=== PATIENT | female | born 1975 | race Caucasian/White ===

== ENCOUNTER → 2018-01-20 | Outpatient (CLI) | payer BC | LOC: FIMAGING 08:18 | PROVIDERS: ATTEND Advanced Practice Midwife | DX: O09.522 Supervision of elderly multigravida, second trimester (principal); Z3A.19 19 weeks gestation of pregnancy ==

== ENCOUNTER 2018-05-19 16:39 | Inpatient (IN) | payer MEDICAID ==
[2018-05-19] MEDS ORDERED: LR 1,000 ML IV PRN (17:27)
[2018-05-19] MEDS ORDERED: OXYTOCIN/RINGERS LACTATE 1,000 ML IV PRN (17:27)
[2018-05-19] MEDS ORDERED: MISOPROSTOL 200 MCG TAB PR PRN (17:27)
[2018-05-19] MEDS ORDERED: LIDOCAINE 1% 300 MG/30 ML SDV SC PRN (17:27)
[2018-05-19] MEDS ORDERED: EPSOM SALT 454 GM TP PRN (17:27)
[2018-05-19] MEDS ORDERED: IBUPROFEN 600 MG TAB PO PRN (17:27)
[2018-05-19] MEDS ORDERED: OLIVE OIL 118 ML BTL MISC PRN (17:27)
[2018-05-19] MEDS ORDERED: BETAMETHASONE IM SYRINGE IM ONE (17:50)
--- NOTE | 2018-05-19 18:21 | PDGENHP ---
History and Physical History and Physical: Care: [facility] HPI: Patient is a 42 yo G 2 P 0 @ 36 weeks that presents to L&D for monitoring and betamethasone prior to starting induction of labor for IUGR per [facility] recommendation EDC: 06/16/18 which is based on LMP: 09/19/2018 which is known and consistent with Ultrasound at 10 weeks. 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 Review of Systems: Constitutional: Denies any fever, chills, or fatigue HEENT: denies any visual changes, difficulty swallowing, hearing loss Cardiovascular: Denies any chest pain, palpitations, leg swelling Respiratory: denies any cough, wheezing, or shortness of breathe GI: Denies any nausea, vomiting, diarrhea, constipation : denies any dysuria, urgency, frequency, vaginal bleeding Musculoskeletal: denies any muscle or bone pain Skin: denies any rashes Neuro: denies any headache, seizures, lightheadedness, dizziness, or loss of consciousness Psychiatric: denies any depression, anxiety, or SI/HI thoughts HISTORY: Previous brand leader history: Hx of LEEP Past medical history: Past surgical history: Tonsillectomy, tx for accident in hospital resulting in broken foot and compressed vertebra (T7) Social: Denies any alcohol, tobacco, or drug use. Family history: Not relevant Medications: PNV, iron, probiotics, vitex Allergies (list reaction): NKDA LABS: Rh: A+ ABS: Neg Rubella: Immune HbsAg: NR HIV: NR VDRL: NR 1hr: 120 GC: Neg Chlamydia: Neg GBS: pending BMI: (prepreg)21 PHYSICAL EXAM: Constitutional: WN, A&Ox3 HEENT: normocephalic atraumatic, supple Skin: Warm, dry, intact Heart: RRR, no murmur Chest: CTA-B Abdomen: Soft, nontender, gravid SVE: 50/-2 in the office today Extremities: neg edema, negative homans sign Neuro: grossly normal Psych: normal affect assessment: FHT baseline 130 +accels, no decels, moderate variability Contractions: none Assessment: 1)42 yo G 2 P 0 with IUP@ 36 2) IUGR - planned induction of labor 3) GBS status pending 4) Cat 1 FHR tracing Plan: 1) Admit to L&D 2) Betamethasone 12 mg IM once; repeat in 24 hours 3) Reviewed with Dr Martel; plan to wait to start cervical ripening until second dose of betamethasone. 4) Continuous monitoring Today's visit was approximately 30 min, of which >50% of visit, was spent face to face with pt on direct counseling/coordination of care.
[2018-05-19] MEDS ORDERED: ZOLPIDEM TARTRATE 5 MG TAB PO PRN (18:25)
--- NOTE | 2018-05-20 09:10 | OBPROG ---
Labor Progress Note Assessment/Plan: Assessment: 42 y/o at 36.1 weeks ega with IUGR at 4% Category 1 EFM 2nd dose of betamethasone due at 1845 today Plan: Continuous monitoring Will place balloon catheter after 2nd dose of betamethasone given and start low dose pitocin overnight Plan pitocin induction in AM 05/20/18 17:36 Subjective/Intrapartum Course: 05/20/18 17:47 Did not sleep well overnight. Baby active. Reviewed plan of care. Denies concerns or discomfort. 05/20/18 17:48 - Physical Exam General Appearance: WD/WN, alert Neck: non-tender Respiratory: normal breath sounds Cardiac/Chest: regular rate, rhythm Abdomen: non-tender Extremities: normal range of motion Skin: normal color, warm/dry Neuro/Psych: no motor/sensory deficits, alert, normal mood/affect, oriented x 3 Oxytocin Orders Assessment - Pre-Induction/Augmentation Assessment Gestational Age: 36 week(s) and 1 day(s) ICD10 Worksheet Patient Problems: Problems Problem Status Onset Advanced maternal age, primigravida Acute IUGR (intrauterine growth restriction) affecting care of mother Acute
[2018-05-20] MEDS ORDERED: hydrOXYzine HCL 50 MG TAB PO PRN (09:14)
[2018-05-20] MEDS: ACYCLOVIR 400 MG TAB PO SCH ×2 (17:12→21:17)
[2018-05-20] MEDS ORDERED: BETAMETHASONE IM SYRINGE IM ONE (17:52)
[2018-05-20] MEDS ORDERED: LIDOCAINE 1% 300 MG/30 ML SDV ONE (17:57)
[2018-05-20] MEDS ORDERED: OLIVE OIL 118 ML BTL ONE (17:57)
[2018-05-20] MEDS ORDERED: AMMONIA AROMATIC 1 EACH AMP IH ONE (17:58)
[2018-05-20] MEDS ORDERED: OXYTOCIN 10 UNIT/ML VIAL ONE (17:58)
[2018-05-20] MEDS ORDERED: MISOPROSTOL 200 MCG TAB ONE (17:58)
[2018-05-20] MEDS ORDERED: LR 500 ML IV PRN ×2 (21:02→21:05)
--- NOTE | 2018-05-20 21:02 | OBPROG ---
Labor Progress Note Assessment/Plan: Assessment: 42 y/o at 36.1 weeks ega with IUGR at 4% Category 1 EFM 2nd dose of betamethasone given at 1845 today Cook cath placed without difficulty with [address] in uterine balloon - pt tolerated well Plan: Continuous monitoring Will start low dose pitocin at 2300 and encourage pt to rest Plan pitocin induction in AM 05/20/18 17:36 05/20/18 22:42 Subjective/Intrapartum Course: 05/20/18 17:47 Did not sleep well overnight. Baby active. Reviewed plan of care. Denies concerns or discomfort. 05/20/18 17:48 05/20/18 22:45 Without complaints. and doulas at bedside to support during cook cath placement - SVE Dilation (cm): 1 Effacement (%): 50 Station: -2 Membranes: Intact - Procedures Non-surgical Procedures: Other (Specify) (cook cath placed - 50 cc sterile saline placed in uterine balloon) Oxytocin Orders Assessment - Pre-Induction/Augmentation Assessment Gestational Age: 36 week(s) and 1 day(s) ICD10 Worksheet Patient Problems: Problems Problem Status Onset Advanced maternal age, primigravida Acute IUGR (intrauterine growth restriction) affecting care of mother Acute
[2018-05-20 21:29] LABS: PLATELET COUNT 245 10^3/uL (150-400)
[2018-05-20] MEDS ORDERED: OXYTOCIN/RINGERS LACTATE 500 ML IV SCH ×2 (21:30)
--- NOTE | 2018-05-20 22:41 | SOAPPROG ---
SOAP Progress Note Assessment/Plan: Assessment: Patient is being induced. Called in for acupuncture this evening to help with relaxation and sleep. Patient complains of mild R sciatic pain, mild reflux and some rib pain. Treatment: Yin Kimbrough: relaxation Bilateral Auricular: Cortes men, Point Zero, Sympathetic, Heart, Kidney Right Side: HT 7: Balance the GB meridian. Relax the neck in side-bending. Calm the Cortes PC 6: Balance the ST meridian. Reduce reflux. Open/relax the chest, reduce anxiety DAVID 9: Balance the BL meridian. Relax the cervical spine in flexion and extension. Tonification of DAVID meridian. Ease breath. Mu Earnest: Image of uterus. Improve blood flow. Gu Earnest: Image of uterus. Improve blood flow. PC 7.2: Image of uterus. Improve blood flow. GB 34: Empirical point to relax the tendons. GB 40: Balance GB and HT. Relax the occiput and waist in side-bending. GB 41: Master of the Marjorie Daya ([place]). Open/relax the pelvis. ST 36: Increase Qi/energy. Balance SP meridian. Encourage blood flow to uterus. BL 65: Ness point of the BL meridian. Reduce spinal pain in flexion and extension. Left Side: LI 4: Balance ST meridian. Increase circulation and blood flow. Encourage labor. Ling Gu: Extra point to relieve back pain and relax the back. Da Tiffanie: Extra point to relieve back pain and relax the back. SJ 3: Balance GB, KI, and SP. Improve blood flow to uterus. SI 3: Master of the DU Daya. Improve spinal movement in flexion and extension. SP 3: Balance the ST and SJ meridian. Tonify the SP. Balance water metabolism. SP 4: Master of the Cerna Daya, support the uterus. SP 6: Meeting of Three Leg Yin: LR, KI, and SP. Encourage labor. SP 9: Balance the ST, SJ, and HT. Reduce anxiety. Relax the low back. LR 3: Balance LR and GB. Move the blood. Relax the shoulders and scapula. KI 3: Tonify the KI. KI 7: Balance water metabolism. KI 10: Support the KI. Colcord retained for 45 minutes. Plan: Patient is planning to have a second acupuncture treatment tomorrow. 05/20/18 22:25 Objective: Laboratory Results 05/20/18 21:00 ICD10 Worksheet Patient Problems: Problems Problem Status Onset Advanced maternal age, primigravida Acute IUGR (intrauterine growth restriction) affecting care of mother Acute
[2018-05-20] MEDS ORDERED: ACETAMINOPHEN 500 MG TAB PO PRN (23:36)
[2018-05-21] MEDS ORDERED: TERBUTALINE SULFATE 1 MG/ML VIAL ONE (06:27)
[2018-05-21] MEDS: ACYCLOVIR 400 MG TAB PO SCH ×3 (10:48→22:01)
--- NOTE | 2018-05-21 11:06 | OBPROG ---
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 Baby active. Reviewed plan of care. Denies concerns or discomfort. 05/20/18 17:48 05/20/18 22:45 Without complaints. and doulas at bedside to support during cook cath placement 05/21/18 0900 Pt sitting up in bed, reports mild cramping. does not like traction on balloon. Partner @ BS and supportive. She is refusing abx for GBS treatment at this time. Discussed risks associated with GBS and not treating. Objective: 05/20/18 21:00 Patient ABO/Rh A POSITIVE 05/20/18 21:00 - SVE Dilation (cm): 3 Effacement (%): 50 Station: -2 Membranes: Intact - Contraction Pattern Assessment Current Contraction Pattern: Irregular - FHR Assessment Rincon FHR (bpm): 130 FHR Pattern Variability: Moderate FHR Category: 1 - Procedures Non-surgical Procedures: Other (Specify) (cook cath placed - 50 cc sterile saline placed in uterine balloon) Oxytocin Orders Assessment - Pre-Induction/Augmentation Assessment Gestational Age: 36 week(s) and 1 day(s) ICD10 Worksheet Patient Problems: Problems Problem Status Onset Advanced maternal age, primigravida Acute IUGR (intrauterine growth restriction) affecting care of mother Acute
[2018-05-21] MEDS ORDERED: PENICILLIN G POTASSIUM 5,000,000 UNIT in D5W 150 ML IV ONE (12:54)
--- NOTE | 2018-05-21 15:45 | OBPROG ---
Labor Progress Note Assessment/Plan: Assessment: [id number] with IUP@ 36-2wks IUGR 4th % with abnormal dopplers IOL GBS+ Dailey Balloon in place with 50mL Plan: cont pitocin augmentation traction to balloon agreeable to abx for +GBS, will start pcn reassess in 2 hrs/PRN Subjective/Intrapartum Course: 05/20/18 17:47 Did not sleep well overnight. Baby active. Reviewed plan of care. Denies concerns or discomfort. 05/20/18 17:48 05/20/18 22:45 Without complaints. and doulas at bedside to support during cook cath placement 05/21/18 09:00 Pt sitting up in bed, reports mild cramping. does not like traction on balloon. Partner @ BS and supportive. She is refusing abx for GBS treatment at this time. Discussed risks associated with GBS and not treating. 05/21/18 12:30 Pt doing well, states she is now agreeable to abx for GBS treatment. Family @ BS and supportive. Objective: 05/20/18 21:00 Patient ABO/Rh A POSITIVE 05/20/18 21:00 - SVE Membranes: Intact - Contraction Pattern Assessment Current Contraction Pattern: Irregular - FHR Assessment Rincon FHR (bpm): 140 FHR Pattern Variability: Moderate FHR Category: 2 (intermittent late decelerations noted) - Procedures Non-surgical Procedures: Other (Specify) (cook cath placed - 50 cc sterile saline placed in uterine balloon) Oxytocin Orders Assessment - Pre-Induction/Augmentation Assessment Gestational Age: 36 week(s) and 1 day(s) ICD10 Worksheet Patient Problems: Problems Problem Status Onset Advanced maternal age, primigravida Acute IUGR (intrauterine growth restriction) affecting care of mother Acute
--- NOTE | 2018-05-21 16:02 | OBPROG ---
Labor Progress Note Assessment/Plan: Assessment: [id number] with IUP@ 36-2wks IUGR 4th % with abnormal dopplers IOL GBS+ cat 2 FHR Tracing Plan: cont pitocin augmentation cont abx for GBS+ reviewed FHR tracing with Dr Vergara recommended AROM/internal monitors at this time-pt declines at this time- desires to meditate at this time, will let me know when she is ready Subjective/Intrapartum Course: 05/20/18 17:47 Did not sleep well overnight. Baby active. Reviewed plan of care. Denies concerns or discomfort. 05/20/18 17:48 05/20/18 22:45 Without complaints. and doulas at bedside to support during cook cath placement 05/21/18 09:00 Pt sitting up in bed, reports mild cramping. does not like traction on balloon. Partner @ BS and supportive. She is refusing abx for GBS treatment at this time. Discussed risks associated with GBS and not treating. 05/21/18 12:30 Pt doing well, states she is now agreeable to abx for GBS treatment. Family @ BS and supportive. 05/21/18 16:01 pt currently getting acupuncture. FOB @ BS, supportive. would like time to process recommendation for AROM/FSE/IUPC Objective: 05/20/18 21:00 Patient ABO/Rh A POSITIVE 05/20/18 21:00 - SVE Dilation (cm): 4 Effacement (%): 50 Station: -2 Membranes: Intact - Contraction Pattern Assessment Current Contraction Pattern: Irregular - FHR Assessment Rincon FHR (bpm): 140 FHR Pattern Variability: Moderate FHR Category: 2 - Procedures Non-surgical Procedures: Other (Specify) (cook cath placed - 50 cc sterile saline placed in uterine balloon) Oxytocin Orders Assessment - Pre-Induction/Augmentation Assessment Gestational Age: 36 week(s) and 1 day(s) ICD10 Worksheet Patient Problems: Problems Problem Status Onset Advanced maternal age, primigravida Acute IUGR (intrauterine growth restriction) affecting care of mother Acute
[2018-05-21] MEDS: PENICILLIN G POTASSIUM 2,500,000 UNIT in D5W 150 ML IV SCH ×2 (17:17→21:29)
--- NOTE | 2018-05-21 18:34 | OBPROG ---
Labor Progress Note Assessment/Plan: Assessment: [id number] with IUP@ 36-2wks IUGR 4th % with abnormal dopplers IOL GBS+ cat 2 FHR Tracing AROM- clear Plan: cont pitocin augmentation cont abx for GBS+ amnioinfusion started due to variable decelerations after AROM Subjective/Intrapartum Course: 05/20/18 17:47 Did not sleep well overnight. Baby active. Reviewed plan of care. Denies concerns or discomfort. 05/20/18 17:48 05/20/18 22:45 Without complaints. and doulas at bedside to support during cook cath placement 05/21/18 09:00 Pt sitting up in bed, reports mild cramping. does not like traction on balloon. Partner @ BS and supportive. She is refusing abx for GBS treatment at this time. Discussed risks associated with GBS and not treating. 05/21/18 12:30 Pt doing well, states she is now agreeable to abx for GBS treatment. Family @ BS and supportive. 05/21/18 16:01 pt currently getting acupuncture. FOB @ BS, supportive. would like time to process recommendation for AROM/FSE/IUPC 05/21/18 18:14 Pt doing well, agreeable to amnioinfusion due to variable decelerations. Doulas and FOB @ BS supportive. Objective: 05/20/18 21:00 Patient ABO/Rh A POSITIVE 05/20/18 21:00 - SVE Dilation (cm): 4 Effacement (%): 50 Station: -2 Membranes: AROM Amniotic Fluid Color: Clear - Contraction Pattern Assessment Current Contraction Pattern: Irregular - FHR Assessment Rincon FHR Pattern Variability: Moderate FHR Category: 1 - Procedures Non-surgical Procedures: Amniotomy, FSE, IUPC, Other (Specify) (amnioinfusion started) Oxytocin Orders Assessment - Pre-Induction/Augmentation Assessment Gestational Age: 36 week(s) and 1 day(s) ICD10 Worksheet Patient Problems: Problems Problem Status Onset Advanced maternal age, primigravida Acute IUGR (intrauterine growth restriction) affecting care of mother Acute
--- NOTE | 2018-05-21 22:06 | OBPROG ---
Labor Progress Note Assessment/Plan: Assessment: [id number] with IUP@ 36-2wks IUGR 4th % with abnormal dopplers IOL GBS+ cat 2 FHR Tracing AROM- clear Plan: cont pitocin augmentation cont abx for GBS+ Reassess 2-4hr/PRN consider pain management Subjective/Intrapartum Course: 05/20/18 17:47 Did not sleep well overnight. Baby active. Reviewed plan of care. Denies concerns or discomfort. 05/20/18 17:48 05/20/18 22:45 Without complaints. and doulas at bedside to support during cook cath placement 05/21/18 09:00 Pt sitting up in bed, reports mild cramping. does not like traction on balloon. Partner @ BS and supportive. She is refusing abx for GBS treatment at this time. Discussed risks associated with GBS and not treating. 05/21/18 12:30 Pt doing well, states she is now agreeable to abx for GBS treatment. Family @ BS and supportive. 05/21/18 16:01 pt currently getting acupuncture. FOB @ BS, supportive. would like time to process recommendation for AROM/FSE/IUPC 05/21/18 18:14 Pt doing well, agreeable to amnioinfusion due to variable decelerations. Doulas and FOB @ BS supportive. 05/21/18 22:05 Pt doing well, she is breathing through contractions. She desires exam to assess progress. She declines any labor support at this time, doulas and FOB @ BS Objective: 05/20/18 21:00 Patient ABO/Rh A POSITIVE 05/20/18 21:00 - SVE Dilation (cm): 4 Effacement (%): 50 Station: -2 Membranes: AROM Amniotic Fluid Color: Clear - Contraction Pattern Assessment Current Contraction Pattern: Regular - FHR Assessment Rincon FHR Pattern Variability: Moderate FHR Category: 1 - Procedures Non-surgical Procedures: Amniotomy, FSE, IUPC, Other (Specify) (amnioinfusion started) Oxytocin Orders Assessment - Pre-Induction/Augmentation Assessment Gestational Age: 36 week(s) and 1 day(s) ICD10 Worksheet Patient Problems: Problems Problem Status Onset Advanced maternal age, primigravida Acute IUGR (intrauterine growth restriction) affecting care of mother Acute
--- NOTE | 2018-05-21 23:02 | SOAPPROG ---
SOAP Progress Note Assessment/Plan: Assessment: 42 year old patient, 36 weeks pregnacy early labor induction do to slow/ irregular heart monitor of the baby. Currently has a Dailey bulb to help with induction, as of now 4cm dilation with mild contractions about 4-8minutes. Sp qi and staples chan leading to damp-phlegm, St yin chan-heat Tongue- geographic, sticky wet white, peeled Pulse- soggy, slow, slippery Plan: Nourish spleen qi and satples, st yin, clear heat, resolve damp and phlegm Acupuncture points: Scalp LJ, Sp9, Sp6, Sp4, LV3, GB41, SJ5, ST44, LI4 Auricular points: Thalamus, sympathetic, Cortes Men, Point Zero 05/21/18 22:39 05/21/18 23:10 Subjective: Sleep- Last night finally got some sleep but the few night before not much, took ambien, but did not work at all. Dailey is very uncomfortable she states, in pain. Stress- fear, worried, hard to let go, wants the best for her baby. Digestion- taking "Calm" supplement to be regular, had some constipation. Energy- exhausted but also wants to do whatever she needs to do to help the baby come safely, willing to walk and do movements. Thirst- gets thirty but does have to urinate quiet often. Overall feeling ready to give . Objective: Laboratory Results 05/20/18 21:00 Skin color is slightly brown, grayish tent, feels damp to touch, has sticky wet tongue coating. Temp. feeling hot and cold, alternating. - Time Spent With Patient Time Spent With Patient: Acupuncture needle retention time 1 hour, acupressure and support total time 2 hours. ICD10 Worksheet Patient Problems: Problems Problem Status Onset Advanced maternal age, primigravida Acute IUGR (intrauterine growth restriction) affecting care of mother Acute
[2018-05-21] MEDS ORDERED: BUPIVACAINE 0.25% 10 ML SDV ONE (23:28)
[2018-05-21] MEDS ORDERED: fentaNYL 2MCG/ML/BUP 0.1% RTU 100 ML BAG EP ONE (23:29)
[2018-05-21] MEDS ORDERED: PHENYLEPHRINE HCL 100 MCG/ML SYR ONE (23:30)
--- NOTE | 2018-05-21 23:38 | OBPROG ---
Labor Progress Note Assessment/Plan: Assessment: [id number] with IUP@ 36-2wks IUGR 4th % with abnormal dopplers IOL GBS+ cat 2 FHR Tracing AROM- clear Plan: cont pitocin augmentation TAYLOR per pt request Subjective/Intrapartum Course: 05/20/18 17:47 Did not sleep well overnight. Baby active. Reviewed plan of care. Denies concerns or discomfort. 05/20/18 17:48 05/20/18 22:45 Without complaints. and doulas at bedside to support during cook cath placement 05/21/18 09:00 Pt sitting up in bed, reports mild cramping. does not like traction on balloon. Partner @ BS and supportive. She is refusing abx for GBS treatment at this time. Discussed risks associated with GBS and not treating. 05/21/18 12:30 Pt doing well, states she is now agreeable to abx for GBS treatment. Family @ BS and supportive. 05/21/18 16:01 pt currently getting acupuncture. FOB @ BS, supportive. would like time to process recommendation for AROM/FSE/IUPC 05/21/18 18:14 Pt doing well, agreeable to amnioinfusion due to variable decelerations. Doulas and FOB @ BS supportive. 05/21/18 22:05 Pt doing well, she is breathing through contractions. She desires exam to assess progress. She declines any labor support at this time, doulas and FOB @ BS 05/21/18 23:30 Pt requesting TAYLOR for pain relief. She tried N2O with little relief. She is unable to cope with pain during contractions. FOB and doulas present @ BS Objective: 05/20/18 21:00 Patient ABO/Rh A POSITIVE 05/20/18 21:00 - SVE Membranes: AROM Amniotic Fluid Color: Clear - Contraction Pattern Assessment Current Contraction Pattern: Regular - FHR Assessment Rincon FHR Pattern Variability: Moderate FHR Category: 2 - Procedures Non-surgical Procedures: Amniotomy, FSE, IUPC, Other (Specify) (amnioinfusion started) Oxytocin Orders Assessment - Pre-Induction/Augmentation Assessment Gestational Age: 36 week(s) and 1 day(s) ICD10 Worksheet Patient Problems: Problems Problem Status Onset Advanced maternal age, primigravida Acute IUGR (intrauterine growth restriction) affecting care of mother Acute
[2018-05-22] MEDS ORDERED: PHENYLEPHRINE HCL 100 MCG/ML SYR IVP PRN
[2018-05-22] MEDS ORDERED: LR 500 ML IV SCH
[2018-05-22] MEDS ORDERED: ONDANSETRON 4 MG/2 ML VIAL IVP PRN
[2018-05-22] MEDS ORDERED: fentaNYL 2MCG/ML/BUP 0.1% RTU 100 ML EP SCH
[2018-05-22] MEDS ORDERED: METOCLOPRAMIDE 10 MG/2 ML VIAL IVP PRN
--- NOTE | 2018-05-22 | PREANESOB ---
Obstetric Pre-Anesthesia Info - General Info : 2 Para: 0 LUIS FERNANDO: [birth year] Gestational Age: 36 week(s) and 1 day(s) - Labor Status Cervical Dilation per last OB SVE: 4 Station per last OB SVE: -2 Amniotic Fluid Color: Clear Anesthesia Allergies/Adverse Reactions: Allergy/AdvReac Type Severity Reaction Status Date / Time No Known Allergies Allergy Unverified 05/19/18 17:25 Home Medications: Medication Instructions Recorded Aspirin [Aspirin 81mg (*)] 81 mg PO DAILY 05/20/18 Lactobacillus Acidophilus 05/20/18 [Probiotic] [place]-3/Dha/Epa/Fish Oil [Fish Oil 05/20/18 1,000 mg Softgel] Vit27&Calcium/Iron/FA 1 each PO DAILY 05/20/18 [ Rx 1 Tablet (RX)] Valacyclovir HCl [Valtrex] 1,000 mg PO TID 05/20/18 Visit Medications: Generic Name Dose Route Start Last Admin Trade Name Freq PRN Reason Stop Dose Admin Acetaminophen 1,000 mg 05/20/18 23:36 05/20/18 23:41 Tylenol PO 11/16/18 23:35 1,000 mg Q6HRS PRN Administration Pain, Mild/Fever, Can Take PO Acyclovir 400 mg 05/20/18 09:30 05/21/18 22:01 Acyclovir PO 06/19/18 09:29 Not Given TID MEL Hydroxyzine HCl 100 mg 05/20/18 09:14 05/20/18 23:22 Hydroxyzine Hcl PO 11/16/18 09:13 100 mg ONCE PRN Administration Sleep/Insomnia Oxytocin/Lactated Ringer's 1,000 mls @ 125 mls/hr 05/19/18 17:27 Pitocin 20 Units/Lr (Premix) IV PRN PRN Post bleeding Oxytocin/Lactated Ringer's 500 mls @ 0 mls/hr 05/20/18 21:30 05/21/18 05:48 Pitocin 30 Units/Lr (Premix) IV 11/16/18 21:29 500 mls CONT MEL Administration Protocol Per Protocol Oxytocin/Lactated Ringer's 500 mls @ 0 mls/hr 05/20/18 21:30 Pitocin 30 Units/Lr (Premix) IV 11/16/18 21:29 CONT MEL Protocol Per Protocol Penicillin G Potassium 2,500, 155 mls @ 155 mls/hr 05/21/18 17:00 05/21/18 21 :29 000 unit/ Dextrose IV 06/20/18 16:59 155 mls Q4H [facility] Administration Protocol Ibuprofen 600 mg 05/19/18 17:27 Motrin PO ONCE PRN post , pain Lidocaine HCl 300 mg 05/19/18 17:27 Lidocaine Hcl 1% SC 11/15/18 17:26 ONCE PRN episiotomy Magnesium Sulfate 454 gm 05/19/18 17:27 Epsom Salt TP 11/15/18 17:26 Q1H PRN perineal discomfort Misoprostol 800 - 1,000 mcg 05/19/18 17:27 Cytotec RI ONCE PRN Vaginal Atony/Bleeding [place] Oil 118 ml 05/19/18 17:27 Sweet Oil MISC 11/15/18 17:26 ONCE PRN perineal massage Zolpidem Tartrate 5 mg 05/19/18 18:25 05/19/18 22:32 Ambien PO 11/15/18 18:24 5 mg HS PRN Administration Sleep/Insomnia Discontinued Medications Generic Name Dose Route Start Last Admin Trade Name Freq PRN Reason Stop Dose Admin Ammonia (Aromatic Spirit) Confirm 05/20/18 17:58 Ammonia Aromatic Administered 05/20/18 17:59 Dose 1 each IH .STK-MED ONE Betamethasone Acet/Betameth SodPhos 12 mg 05/19/18 17:50 05/19/18 18:40 Celestone Im Syringe IM 05/19/18 17:51 12 mg ONCE ONE Administration Betamethasone Acet/Betameth SodPhos 12 mg 05/20/18 17:52 05/20/18 18:44 Celestone Im Syringe IM 05/20/18 17:53 12 mg ONCE ONE Administration Bupivacaine HCl Confirm 05/21/18 23:28 Sensorcaine 0.25% Sdv Administered 05/21/18 23:29 Dose 10 ml .ROUTE .STK-MED ONE Fentanyl/Bupivacaine HCl Confirm 05/21/18 23:29 Fentanyl/Bupivacaine/Ns 2 Mcg/Ml 0.1% (Premix Administered 05/21/18 23:30 Dose 100 ml EP .STK-MED ONE Lactated Ringer's 1,000 mls @ 0 mls/hr 05/19/18 17:27 Lr IV 05/20/18 17:26 PRN PRN SEE PROTOCOL CONDITIONS Protocol Per Protocol Lactated Ringer's 500 mls @ 500 mls/hr 05/20/18 21:02 Lr IV 05/21/18 21:02 PRN PRN Maternal Hypotension Lactated Ringer's 500 mls @ 500 mls/hr 05/20/18 21:05 Lr IV 05/21/18 21:05 PRN PRN Maternal Hypotension Penicillin G Potassium 5,000, 160 mls @ 160 mls/hr 05/21/18 12:54 05/21/18 13 :46 000 unit/ Dextrose IV 05/21/18 13:53 160 mls ONCE ONE Administration Protocol Lidocaine HCl Confirm 05/20/18 17:57 Lidocaine Hcl 1% Administered 05/20/18 17:58 Dose 300 mg .ROUTE .STK-MED ONE Misoprostol Confirm 05/20/18 17:58 Cytotec Administered 05/20/18 17:59 Dose 1,000 mcg .ROUTE .STK-MED ONE [place] Oil Confirm 05/20/18 17:57 Sweet Oil Administered 05/20/18 17:58 Dose 118 ml .ROUTE .STK-MED ONE Oxytocin Confirm 05/20/18 17:58 Pitocin Administered 05/20/18 17:59 Dose 30 unit .ROUTE .STK-MED ONE Phenylephrine HCl Confirm 05/21/18 23:30 Neosynephrine Administered 05/21/18 23:31 Dose 1,000 mcg .ROUTE .STK-MED ONE Terbutaline Sulfate Confirm 05/21/18 06:27 [place] Administered 05/21/18 06:28 Dose 1 mg .ROUTE .STK-MED ONE - Vital Signs Height/Weight (Nursing): Height 149.86 cm Weight 61.689 kg Labs: 05/20/18 21:00 Patient ABO/Rh A POSITIVE 05/20/18 21:00 - Plan Consent Signed and on Chart: Yes Urgent/Emergent Case: Anes eval completed preop but documented later for safe timely pt care
[2018-05-22] MEDS: PENICILLIN G POTASSIUM 2,500,000 UNIT in D5W 150 ML IV SCH ×2 (01:10→05:18)
--- NOTE | 2018-05-22 01:10 | OBPROG ---
Labor Progress Note Assessment/Plan: Assessment: [id number] with IUP@ 36-2wks IUGR 4th % with abnormal dopplers IOL GBS+ cat 2 FHR Tracing AROM- clear TAYLOR in place Plan: pitocin off at this time cont IV abx Dr Vergara requested to be on unit 2/2 FHR tracing cont position changes O2 applied 05/22/18 01:07 Subjective/Intrapartum Course: 05/20/18 17:47 Did not sleep well overnight. Baby active. Reviewed plan of care. Denies concerns or discomfort. 05/20/18 17:48 05/20/18 22:45 Without complaints. and doulas at bedside to support during cook cath placement 05/21/18 09:00 Pt sitting up in bed, reports mild cramping. does not like traction on balloon. Partner @ BS and supportive. She is refusing abx for GBS treatment at this time. Discussed risks associated with GBS and not treating. 05/21/18 12:30 Pt doing well, states she is now agreeable to abx for GBS treatment. Family @ BS and supportive. 05/21/18 16:01 pt currently getting acupuncture. FOB @ BS, supportive. would like time to process recommendation for AROM/FSE/IUPC 05/21/18 18:14 Pt doing well, agreeable to amnioinfusion due to variable decelerations. Doulas and FOB @ BS supportive. 05/21/18 22:05 Pt doing well, she is breathing through contractions. She desires exam to assess progress. She declines any labor support at this time, doulas and FOB @ BS 05/21/18 23:30 Pt requesting TAYLOR for pain relief. She tried N2O with little relief. She is unable to cope with pain during contractions. FOB and doulas present @ BS 05/22/18 01:08 Pt now comfortable with TAYLOR. She denies any pain or pressure. She desires to sleep at this time. FOB @ BS and supportive. Objective: 05/20/18 21:00 Patient ABO/Rh A POSITIVE 05/20/18 21:00 - SVE Dilation (cm): 4 Effacement (%): 80 Station: -1 Membranes: AROM Amniotic Fluid Color: Clear - Contraction Pattern Assessment Current Contraction Pattern: Regular - FHR Assessment [place] FHR (bpm): 125 FHR Pattern Variability: Moderate FHR Category: 2 (late and variable decels noted; amnioinfusion started (500mL bolus)) - Procedures Non-surgical Procedures: Amniotomy, FSE, IUPC, Other (Specify) (amnioinfusion started) Oxytocin Orders Assessment - Pre-Induction/Augmentation Assessment Gestational Age: 36 week(s) and 1 day(s) ICD10 Worksheet Patient Problems: Problems Problem Status Onset Advanced maternal age, primigravida Acute IUGR (intrauterine growth restriction) affecting care of mother Acute
[2018-05-22] MEDS ORDERED: IBUPROFEN 600 MG TAB PO PRN (07:15)
[2018-05-22] MEDS ORDERED: SIMETHICONE 80 MG TAB CHEW PO PRN (07:15)
[2018-05-22] MEDS ORDERED: DOCUSATE SODIUM 100 MG CAP PO PRN (07:15)
[2018-05-22] MEDS ORDERED: ACETAMINOPHEN 325 MG TAB PO PRN (07:15)
[2018-05-22] MEDS ORDERED: HYDROCORTISONE 0.5% CREAM TP PRN (07:15)
--- NOTE | 2018-05-22 07:15 | OBDEL ---
Info Type: Vaginal Presentation at Delivery: Vertex L&D Analgesia/Anesthesia Type: Epidural GBS+: Yes (penicillin) Intrapartum Medications: Generic Name Dose Route Start Last Admin Trade Name Nolan PRN Reason Stop Dose Admin Acetaminophen 1,000 mg 05/20/18 23:36 05/20/18 23:41 Tylenol PO 11/16/18 23:35 1,000 mg Q6HRS PRN Administration Pain, Mild/Fever, Can Take PO Acyclovir 400 mg 05/20/18 09:30 05/21/18 22:01 Acyclovir PO 06/19/18 09:29 Not Given TID MEL Hydroxyzine HCl 100 mg 05/20/18 09:14 05/20/18 23:22 Hydroxyzine Hcl PO 11/16/18 09:13 100 mg ONCE PRN Administration Sleep/Insomnia Oxytocin/Lactated Ringer's 500 mls @ 0 mls/hr 05/20/18 21:30 05/21/18 05:48 Pitocin 30 Units/Lr (Premix) IV 11/16/18 21:29 500 mls CONT MEL Administration Protocol Per Protocol Penicillin G Potassium 2,500, 155 mls @ 155 mls/hr 05/21/18 17:00 05/22/18 05 :18 000 unit/ Dextrose IV 06/20/18 16:59 155 mls Q4H MEL Administration Protocol Zolpidem Tartrate 5 mg 05/19/18 18:25 05/19/18 22:32 Ambien PO 11/15/18 18:24 5 mg HS PRN Administration Sleep/Insomnia Discontinued Medications Generic Name Dose Route Start Last Admin Trade Name Nolan PRN Reason Stop Dose Admin Betamethasone Acet/Betameth SodPhos 12 mg 05/19/18 17:50 05/19/18 18:40 Celestone Im Syringe IM 05/19/18 17:51 12 mg ONCE ONE Administration Betamethasone Acet/Betameth SodPhos 12 mg 05/20/18 17:52 05/20/18 18:44 Celestone Im Syringe IM 05/20/18 17:53 12 mg ONCE ONE Administration Penicillin G Potassium 5,000, 160 mls @ 160 mls/hr 05/21/18 12:54 05/21/18 13 :46 000 unit/ Dextrose IV 05/21/18 13:53 160 mls ONCE ONE Administration Protocol - Care Provider Safety Instructor/MUCKER COFFERDAM: Nadia Tolbert - Hospital Course Intrapartum: 05/20/18 17:47 Did not sleep well overnight. Baby active. Reviewed plan of care. Denies concerns or discomfort. 05/20/18 17:48 05/20/18 22:45 Without complaints. and doulas at bedside to support during cook cath placement 05/21/18 09:00 Pt sitting up in bed, reports mild cramping. does not like traction on balloon. Partner @ BS and supportive. She is refusing abx for GBS treatment at this time. Discussed risks associated with GBS and not treating. 05/21/18 12:30 Pt doing well, states she is now agreeable to abx for GBS treatment. Family @ BS and supportive. 05/21/18 16:01 pt currently getting acupuncture. FOB @ BS, supportive. would like time to process recommendation for AROM/FSE/IUPC 05/21/18 18:14 Pt doing well, agreeable to amnioinfusion due to variable decelerations. Doulas and FOB @ BS supportive. 05/21/18 22:05 Pt doing well, she is breathing through contractions. She desires exam to assess progress. She declines any labor support at this time, doulas and FOB @ BS 05/21/18 23:30 Pt requesting TAYLOR for pain relief. She tried N2O with little relief. She is unable to cope with pain during contractions. FOB and doulas present @ BS 05/22/18 01:08 Pt now comfortable with TAYLOR. She denies any pain or pressure. She desires to sleep at this time. FOB @ BS and supportive. Indications for Delivery: Growth Restriction w/Abnormal Doppler studies Vaginal Delivery - Delivery Provider Delivery Physician/CNM: Nandini James - Labor and Delivery Onset of Contractions Date: 05/08/18 Onset of Contractions Time: 20:00 Onset of Contractions Type: Induced Rupture of Membranes Date: 05/21/18 Rupture of Membranes Time: 17:20 Rupture of Membranes Type: Artificial Amniotic Fluid Color: Clear Dilation Complete Date: 05/22/18 Dilation Complete Time: 05:40 Placenta Delivery Date: 05/22/18 Placenta Delivery Time: 06:35 Total Hours of Labor: 322 Non-surgical Procedures: Amniotomy, FSE, IUPC, Other (Specify) (amnioinfusion started) Laceration: Other (Specify) (right labial) Repair: 4-0, Chromic Vaginal Sponge Count Correct: Yes Vaginal Needle Count Correct: Yes Vaginal Sweep Performed: Yes EBL: 200 Delivery Events: Nuchal Cord - Medications Labor Augmentation/Induction Methods Used: Pitocin, Dailey Bulb Elizabeth Data LUIS FERNANDO: [birth year] Gestational Age: 36 week(s) and 3 day(s) [place] Delivery Date: 05/22/18 Delivery Time: 06:24 Sex of Infant: Male Score (1 Min): 8 Score (5 Min): 9 ICD10 Worksheet Patient Problems: Problems Problem Status Onset Advanced maternal age, primigravida Acute IUGR (intrauterine growth restriction) affecting care of mother Acute Nuchal cord, single gestation Acute (spontaneous vaginal delivery) Acute - ICD10 Problem Qualifiers (1) (spontaneous vaginal delivery) (2) Nuchal cord, single gestation
[2018-05-22] MEDS: ACYCLOVIR 400 MG TAB PO SCH (10:13)
--- NOTE | 2018-05-23 13:14 | OBPP ---
Progress Note Assessment/Plan: Assessment: 1. First PP day 2. [id number] 3. Breast feeding difficulty Plan: 1. D/C mom to boarding tomorrow. 2. support. 05/23/18 12:57 Subjective/ Course: 05/23/18 12:58 Feeling well. Voiding without difficulty, BM today. Breast feeding difficulty. Baby receiving treatment for jaundice. Plan d/c to boarding tomorrow. Objective: 05/20/18 21:00 Patient ABO/Rh A POSITIVE 05/20/18 21:00 Temp Pulse Resp BP Pulse Ox 36.4 C 66 18 88/57 L 97 05/23/18 08:00 05/23/18 08:00 05/23/18 08:00 05/23/18 08:00 05/23/18 08:00 VSS Uterine Position/Fundal Height: At Umbilicus Uterine Tone: Firm
[2018-05-24 09:33] VITALS: BP 98/64
--- NOTE | 2018-05-24 12:15 | OBGCSDC ---
General Delivery Information - General Info : 2 Para: 1 Abortions: 1 Type: Vaginal L&D Analgesia/Anesthesia Type: Epidural Admission Date: 05/19/18 Labs: Patient ABO/Rh A POSITIVE 05/20/18 21:00 Hct 36.9 % (38.0-47.0) L 05/20/18 21:00 - Hospital Course Intrapartum: 05/20/18 17:47 Did not sleep well overnight. Baby active. Reviewed plan of care. Denies concerns or discomfort. 05/20/18 17:48 05/20/18 22:45 Without complaints. and doulas at bedside to support during cook cath placement 05/21/18 09:00 Pt sitting up in bed, reports mild cramping. does not like traction on balloon. Partner @ BS and supportive. She is refusing abx for GBS treatment at this time. Discussed risks associated with GBS and not treating. 05/21/18 12:30 Pt doing well, states she is now agreeable to abx for GBS treatment. Family @ BS and supportive. 05/21/18 16:01 pt currently getting acupuncture. FOB @ BS, supportive. would like time to process recommendation for AROM/FSE/IUPC 05/21/18 18:14 Pt doing well, agreeable to amnioinfusion due to variable decelerations. Doulas and FOB @ BS supportive. 05/21/18 22:05 Pt doing well, she is breathing through contractions. She desires exam to assess progress. She declines any labor support at this time, doulas and FOB @ BS 05/21/18 23:30 Pt requesting TAYLOR for pain relief. She tried N2O with little relief. She is unable to cope with pain during contractions. FOB and doulas present @ BS 05/22/18 01:08 Pt now comfortable with TAYLOR. She denies any pain or pressure. She desires to sleep at this time. FOB @ BS and supportive. : 05/23/18 12:58 Feeling well. Voiding without difficulty, BM today. Breast feeding difficulty. Baby receiving treatment for jaundice. Plan d/c to boarding tomorrow. 05/24/18 12:12 Feeling more emotional today while processing her labor/ experience. Ready to go home as soon as baby is released. Denies pain or heavy bleeding. 05/24/18 12:14 D/C to boarding today. Vaginal - Delivery Provider Delivery Physician/CNM: Nandini James - Diagnosis Labor: Induced Rupture of Membranes Type: Artificial Amniotic Fluid Color: Clear Laceration: Other (Specify) (right labial) Repair: 4-0, Chromic Delivery Events: Nuchal Cord - Procedures Non-surgical Procedures: Amniotomy, FSE, IUPC, Other (Specify) (amnioinfusion started) - Delivery Non-surgical Procedures: Amniotomy, FSE, IUPC, Other (Specify) (amnioinfusion started) EBL: 200 Anton Data LUIS FERNANDO: [birth year] Gestational Age: 36 week(s) and 5 day(s) [place] Delivery Date: 05/22/18 Delivery Time: 06:24 Sex of Infant: Male Weight (gm): 1982 g Score (1 Min): 8 Score (5 Min): 9 Discharge Information - Discharge Information Condition: Good Instruction/Follow Up: Two Weeks, Four Weeks, Six Weeks
--- NOTE | 2018-05-27 17:58 | POSTANESTH ---
Post Anesthetic Evaluation Cardiovascular Status: Normal, Stable Respiratory Status: Normal, Stable Level of Consciousness/Mental Status: Can Participate in Eval Pain Control: Adequate, Prn Tx Ordered Nausea/Vomiting Control: Adequate, Prn Tx Ordered Complications Possibly Related to Anesthesia: None Noted
== END 2018-05-24 19:05 | disposition home or self-care (01) | DRG 560 ==
LOC: FLD 16:39 → FOB 05-22 09:50
PROVIDERS: ADMIT Advanced Practice Midwife; ATTEND Advanced Practice Midwife
DX: O36.5930 Maternal care for other known or suspected poor fetal growth, third trimester, not applicable or unspecified (principal); O70.0 First degree perineal laceration during delivery; O99.820 Streptococcus B carrier state complicating pregnancy; O76 Abnormality in fetal heart rate and rhythm complicating labor and delivery; O69.81X0 Labor and delivery complicated by cord around neck, without compression, not applicable or unspecified; O09.33 Supervision of pregnancy with insufficient antenatal care, third trimester; Z3A.36 36 weeks gestation of pregnancy; Z37.0 Single live birth
CPT/HCPCS: J0702; J2370; J2540; J2590; J3105

== ENCOUNTER → 2018-05-19 | Outpatient (CLI) | payer MEDICAID | LOC: FIMAGING 08:13 | PROVIDERS: ATTEND Advanced Practice Midwife | DX: O09.523 Supervision of elderly multigravida, third trimester (principal); O36.5930 Maternal care for other known or suspected poor fetal growth, third trimester, not applicable or unspecified; Z3A.36 36 weeks gestation of pregnancy ==

== ENCOUNTER → 2018-06-30 | Outpatient (CLI) | payer MEDICAID | LOC: FLACT 10:10 | PROVIDERS: ATTEND Advanced Practice Midwife | DX: O92.29 Other disorders of breast associated with pregnancy and the puerperium (principal) | CPT/HCPCS: G0463 ==

== ENCOUNTER → 2018-07-30 | Outpatient (CLI) | payer MEDICAID | LOC: FLACT 12:57 | PROVIDERS: ATTEND Advanced Practice Midwife | DX: Z39.0 Encounter for care and examination of mother immediately after delivery (principal) | CPT/HCPCS: G0463 ==